=== PATIENT | female | born 1955 | race Two or more races ===

== ENCOUNTER 2023-04-20 11:51 | Emergency (ER) | payer OTHER, BC ==
[~2023-04-20] VITALS: Ht 154.9 cm; Wt 90.7 kg
[2023-04-20] MEDS ORDERED: TRIJARDY XR 5-1 EACH PO (12:07)
[2023-04-20 14:41] LABS: HEMATOCRIT 38.6 % (36.0-45.00); HEMOGLOBIN 12.9 g/dL (12.0-15.00); MEAN CELL VOLUME 93.1 fL (80.00-100.00); MEAN CORPUSCULAR HEMOGLOBIN 31.1 pg (27.00-32.0); MEAN CORPUSCULAR HGB CONC 33.4 g/dl (32.0-36.0); PLATELET COUNT 360 K/uL (150-450); RED BLOOD COUNT 4.15 M/uL (4.00-6.00); RED CELL DISTRIBUTION WIDTH 13.8 % (11.5-14.5)
[2023-04-20 14:45] LABS: PH,URINE 5.5 (5.0-8.0); URINE APPEARANCE Turbid; URINE BILIRRUBIN Negative (NEGATIVE); URINE BLOOD Small; URINE COLOR Yellow; URINE LEUKOCYTE Moderate; URINE NITRATE Positive; URINE PROTEIN Trace (NEGATIVE); URINE UROBILINOGEN 0.2 E.U./dl
[2023-04-20 14:47] LABS: URINE EPITHELIAL CELLS 6.4 uL (0.0-38.8)
[2023-04-20 14:49] LABS: URINE BACTERIA > 9821.5 uL (0.0-1933); URINE GLUCOSE >=1000 MG/DL (NEGATIVE)
[2023-04-20 15:04] LABS: CALCIUM 9.4 mg/dL (8.5-10.1); CREATININE SERUM 0.76 mg/dL (0.55-1.02); GFR 75.68; POTASSIUM 3.44 mEq/L (3.5-5.1)
== END 2023-04-20 16:21 | disposition home or self-care (01) ==
LOC: ER 11:51
PROVIDERS: General Practice
DX: N39.0 Urinary tract infection, site not specified (principal)
CPT/HCPCS: 36415; 96372; 99284; J0696